=== PATIENT | female | born 1975 | race Asian ===

== ENCOUNTER 2020-06-12 05:22 | Emergency (ER) | payer BC ==
--- NOTE | 2020-06-12 06:09 | EDM.PDOC ---
ED HPI GENERAL MEDICAL PROBLEM - General Chief Complaint: Back Pain or Injury Stated Complaint: CHEST PAIN Time Seen by Provider: 06/12/20 06:07 Source of Information: Reports: Patient History Limitations: Reports: No Limitations - History of Present Illness INITIAL COMMENTS - FREE TEXT/NARRATIVE: 45 yo female here with substernal and upper back pain. Has been sleeping on an air mattress the past 2 nights. Had some of this pain last night, none during the day, then worse pain tonight not relieved with Tums or ibuprofen. Has mild nausea. Sx's slightly better here with sitting upright. Had heart burn when , not since that she can remember. Has no personal hx of CAD. Does not know FHx as she is adopted. Pain does not seem to be exertional. Is a nonsmoker with no hx of AODM or HTN. Onset: Other (yesterday) Onset Date: 06/11/20 Duration: Hour(s):, Waxing/Waning Location: Reports: Chest, Back (upper) Quality: Reports: Ache, Burning Severity: Moderate Improves with: Reports: Other (? vertical posture) Worsens with: Reports: Other (lying flat?) Context: Reports: Other (See HPI) Associated Symptoms: Reports: Chest Pain (substernal), Nausea/Vomiting (mild nausea, no vomiting). 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 [No Known Home Meds] 1 ea DAILY 06/12/20 [History] Past Medical History Cardiovascular History: Reports: High Cholesterol - Past Surgical History Cardiovascular Surgical History: Reports: None Social & Family History - Family History Family Medical History: Noncontributory - Tobacco Use Smoking Status *Q: Never Smoker - Caffeine Use Caffeine Use: Reports: Coffee - Recreational Drug Use Recreational Drug Use: No ED ROS GENERAL - Review of Systems Review Of Systems: See Below Constitutional: Reports: No Symptoms HEENT: Reports: No Symptoms Respiratory: Reports: No Symptoms. Denies: Shortness of Breath, Pleuritic Chest Pain Cardiovascular: Reports: Chest Pain (substernal). Denies: Blood Pressure Problem, Dyspnea on Exertion, Lightheadedness, Palpitations Endocrine: Reports: No Symptoms GI/Abdominal: Reports: Nausea (mild). Denies: Abdominal Pain, Vomiting : Reports: No Symptoms Musculoskeletal: Reports: Back Pain (upper) Skin: Reports: No Symptoms. Denies: Diaphoresis Neurological: Reports: No Symptoms Psychiatric: Reports: No Symptoms ED EXAM,LOWER BACK PAIN/INJURY - Physical Exam Exam: See Below Exam Limited By: No Limitations General Appearance: Alert, WD/WN, No Apparent Distress Eye Exam: Bilateral Eye: Normal Inspection Ears: Normal External Exam, Normal Canal, Hearing Grossly Normal Nose: Normal Inspection, No Blood Throat/Mouth: Normal Inspection, Normal Lips, Normal Oropharynx, Normal Voice, No Airway Compromise Head: Atraumatic, Normocephalic Neck: Normal Inspection Respiratory/Chest: No Respiratory Distress, Lungs Clear, Normal Breath Sounds, No Accessory Muscle Use, Chest Non-Tender Cardiovascular: Regular Rate, Rhythm, No Edema GI/Abdominal: Normal Bowel Sounds, Soft, Non-Tender, No Distention. No: Distended, Guarding, Rigid, Rebound, Tender Back Exam: Normal Inspection. No: CVA Tenderness (R), CVA Tenderness (L) Extremities: Normal Inspection, Normal Range of Motion, Non-Tender, No Pedal Edema Neurological: Alert, Normal Mood/Affect, CN II-XII Intact, No Motor/Sensory Deficits, Oriented x 3 Psychiatric: Normal Affect, Normal Mood Skin Exam: Warm, Dry, Intact, Normal Color, No Rash EKG INTERPRETATION EKG Date: 06/12/20 Time: 05:55 Rhythm: NSR Rate (Beats/Min): 55 [place]: Normal P-Wave: Present QRS: RBBB ST-T: Normal QT: Normal Comparison: NA - No Prior EKG Course - Vital Signs Last Recorded V/S: Last Vital Signs Temp 36.0 C L 06/12/20 05:40 Pulse 54 L 06/12/20 05:40 Resp 18 06/12/20 05:40 BP 139/86 06/12/20 05:40 Pulse Ox 100 06/12/20 05:40 - Orders/Labs/Meds Orders: Active Orders 24 hr Category Date Time Status EKG Documentation Completion [RC] ASDIRECTED Care 06/12/20 06:07 Active EKG 12 Lead [EK] Routine Ther 06/12/20 06:06 Ordered Meds: Medications Discontinued Medications Generic Name Dose Route Start Last Admin Trade Name Joey PRN Reason Stop Dose Admin Al Hydroxide/Mg Hydroxide 15 0 ml 06/12/20 06:15 06/12/20 06:23 ml/ Lidocaine HCl 15 ml PO 06/12/20 06:16 30 ml ONETIME ONE Administration - Re-Assessments/Exams Free Text/Narrative Re-Assessment/Exam: 06/12/20 06:42 Got relief with GI cocktail po Departure - Departure Time of Disposition: 06:42 Disposition: Home, Self-Care 01 Condition: Good Clinical Impression: GERD with esophagitis - Discharge Information *PRESCRIPTION DRUG MONITORING PROGRAM REVIEWED*: No *COPY OF PRESCRIPTION DRUG MONITORING REPORT IN PATIENT CARLIN: No Instructions: Gastroesophageal Reflux Disease, Adult, [id number] Referrals: PCP,None [Primary Care Provider] - Forms: ED Department Discharge Additional Instructions: Use Gaviscon as needed for recurrent symptoms. Take acetaminophen preferentially if analgesia is needed. Avoid all of the things we discussed to reduce risk of recurrence. Return as needed. Sepsis Event Note (ED) - Evaluation Sepsis Screening Result: No Definite Risk - Focused Exam Vital Signs: Vital Signs Temp Pulse Resp BP Pulse Ox 06/12/20 05:40 36.0 C L 54 L 18 139/86 100 - My Orders Last 24 Hours: My Active Orders 06/12/20 06:06 EKG 12 Lead [EK] Routine 06/12/20 06:07 EKG Documentation Completion [RC] ASDIRECTED - Assessment/Plan Last 24 Hours: My Active Orders 06/12/20 06:06 EKG 12 Lead [EK] Routine 06/12/20 06:07 EKG Documentation Completion [RC] ASDIRECTED
[2020-06-12] MEDS ORDERED: Alum Hydrox/Mag Hydrox/Simeth 15 ML, Lidocaine 2% 15 ML PO ONE ×2 (06:15)
== END 2020-06-12 06:54 | disposition home or self-care (01) ==
LOC: JP.ED 05:22
DX: K21.0 Gastro-esophageal reflux disease with esophagitis (principal)
CPT/HCPCS: 93005; 99284; A9270; 93010